=== PATIENT | female | born 1980 | race Caucasian/White ===

== ENCOUNTER 2020-10-31 21:59 | Emergency (ER) | payer OTHER ==
[2020-10-31] MEDS ORDERED: KETOROLAC TROMETHAMINE 60 MG/2 ML VIAL IM ONE (22:08)
[2020-10-31] MEDS ORDERED: AZITHROMYCIN 250 MG TABLET ONE (22:10)
[2020-10-31] MEDS ORDERED: KETOROLAC TROMETHAMINE 60 MG/2 ML VIAL ONE (22:10)
[2020-10-31] MEDS ORDERED: NEOMYCIN/POLYMYXN/HC OTIC SUSPENSION 10 ML BOTTLE ONE (22:14)
[2020-10-31] MEDS ORDERED: AZITHROMYCIN 250 MG TABLET PO STA (22:18)
[2020-10-31 22:22] VITALS: BP 152/85; PULSE 82; TEMP 99; BMI 35.9
[2020-11-01] MEDS ORDERED: NEOMYCIN/POLYMYXN/HC OTIC SOLUTION 10 ML BOTTLE AD SCH
[2020-11-01] MEDS ORDERED: AZITHROMYCIN 500 MG TABLET PO SCH (10:00)
== END 2020-10-31 22:39 | disposition home or self-care (01) ==
LOC: FER 21:59
PROC: 3E0233Z Introduction of Anti-inflammatory into Muscle, Percutaneous Approach (ICD-10-PCS; principal; 2020-10-31)
DX: H60.91 Unspecified otitis externa, right ear (principal); H66.91 Otitis media, unspecified, right ear
CPT/HCPCS: 99284-25